=== PATIENT | male | born 1960 | race African-American/Black ===

== ENCOUNTER 2019-11-14 06:00 | Outpatient (CLI) | payer OTHER | END 2019-11-14 06:05 | disposition home or self-care (01) | LOC: LAB 06:00 → CIR.AMB 11:19 | PROVIDERS: ATTEND Surgery | DX: Z20.828 Contact with and (suspected) exposure to other viral communicable diseases (principal); K92.1 Melena; K64.2 Third degree hemorrhoids; K64.4 Residual hemorrhoidal skin tags; K59.04 Chronic idiopathic constipation; K60.1 Chronic anal fissure; Z03.818 Encounter for observation for suspected exposure to other biological agents ruled out ==